=== PATIENT | male | born 1960 | race American Indian/Alaskan Native ===

== ENCOUNTER 2019-01-20 12:34 | Emergency (ER) | payer MEDICAID ==
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
[2019-01-20] MEDS ORDERED: SOLU-Medrol IM ONE (14:53)
[2019-01-20] MEDS ORDERED: ULTRAM PO ONE (14:53)
[2019-01-20] MEDS ORDERED: TORADOL IM ONE (14:53)
[2019-01-20 15:19] VITALS: BP 150/103
== END 2019-01-20 16:01 | disposition home or self-care (01) ==
LOC: ED 12:34
DX: M23.91 Unspecified internal derangement of right knee (principal); I10 Essential (primary) hypertension; F12.90 Cannabis use, unspecified, uncomplicated; Z79.899 Other long term (current) drug therapy
CPT/HCPCS: 73562; 96372; 99283; J1885; J2930